=== PATIENT | female | born 1965 | race Caucasian/White ===

== ENCOUNTER 2021-04-03 05:47 | Inpatient (IN) | payer OTHER ==
[~2021-04-03] VITALS: Ht 162.6 cm; Wt 79.8 kg
[2021-04-03] MEDS ORDERED: CHLORHEXIDINE 15 ML UDC ONE (06:37)
[2021-04-03] MEDS ORDERED: LACTATED RINGERS 1,000 ML IV SCH (07:00)
[2021-04-03] MEDS ORDERED: CHLORHEXIDINE 15 ML UDC PO ONE (07:00)
[2021-04-03] MEDS ORDERED: TOPI25TA32 PO (07:21)
[2021-04-03] MEDS ORDERED: LISI1TAB20 PO (07:21)
[2021-04-03] MEDS ORDERED: ALEN70TA77 PO (07:21)
[2021-04-03] MEDS ORDERED: HYDR-2214 PO (07:21)
[2021-04-03] MEDS ORDERED: FLUO10CA13 PO (07:21)
[2021-04-03] MEDS ORDERED: CALC-112 PO (07:21)
[2021-04-03] MEDS ORDERED: GABA300C PO (07:21)
[2021-04-03] MEDS ORDERED: MIDAZOLAM 1 MG/ML, 2ML ONE (07:26)
[2021-04-03] MEDS ORDERED: FENTANYL PF 250 MCG/5ML ONE (07:27)
[2021-04-03 07:36] LABS: ALANINE AMINOTRANSFERASE 23 U/L (12-78); ALBUMIN 3.9 g/dL (3.4-5.0); ANION GAP 9 mmol/L (5-15); CALCIUM 9.3 mg/dL (8.5-10.1); CHLORIDE 106 mmol/L (98-107); CREATININE 0.62 mg/dL (0.55-1.02)
[2021-04-03 07:38] LABS: ALKALINE PHOSPHATASE 108 U/L (45-117); BILIRUBIN,TOTAL 0.4 mg/dL (0.2-1.0)
[2021-04-03] MEDS ORDERED: ONDANSETRON 2MG/ML, 2ML ONE (07:38)
[2021-04-03] MEDS ORDERED: GLYCOPYRROLATE 0.2MG/1ML, 5ML ONE (07:38)
[2021-04-03] MEDS ORDERED: PROPOFOL 10 MG/ML, 20ML ONE (07:38)
[2021-04-03] MEDS ORDERED: ROCURONIUM 10 MG/ML,10ML ONE (07:38)
[2021-04-03] MEDS ORDERED: NEOSTIGMINE 1 MG/ML, 10ML ONE (07:38)
[2021-04-03] MEDS ORDERED: DEXAMETHASONE 4 MG/ML, 1ML ONE (07:38)
[2021-04-03] MEDS ORDERED: CEFAZOLIN 1,000 MG ONE (07:38)
[2021-04-03] MEDS ORDERED: TRANEXAMIC ACID 100 MG/ML, 10ML ONE (07:58)
[2021-04-03] MEDS ORDERED: VANCOMYCIN 1,000 MG ONE ×2 (09:28→10:07)
[2021-04-03] MEDS ORDERED: PROMETHAZINE 25 MG/ML, 1ML IV PRN (09:30)
[2021-04-03] MEDS ORDERED: DIAZEPAM 5 MG/ML, 2ML IVPush PRN (09:30)
[2021-04-03] MEDS ORDERED: ACETAMINOPHEN 325 MG TABLET PO PRN (09:30)
[2021-04-03] MEDS ORDERED: KETOROLAC 30 MG/1 ML IV PRN (09:30)
[2021-04-03] MEDS ORDERED: OXYcodone 5 MG/5 ML ORAL.SOL UDC PO PRN (09:30)
[2021-04-03] MEDS ORDERED: HYDROmorphone 2 MG/ML, 1ML IVPush PRN (09:30)
[2021-04-03] MEDS ORDERED: MEPERIDINE/PF 25MG/0.5ML IVPush PRN (09:30)
[2021-04-03] MEDS ORDERED: hydrALAzine 20 MG/ML, 1ML IV PRN (09:30)
[2021-04-03] MEDS ORDERED: LABETALOL 5MG/ML, 20ML IV PRN (09:30)
[2021-04-03] MEDS ORDERED: ALBUTEROL SULFATE 2.5 MG/3 ML NPPB PRN (09:30)
[2021-04-03] MEDS ORDERED: TOBRAMYCIN SULFATE 1.2 GM IMP ONE (10:07)
[2021-04-03] MEDS ORDERED: METHYLENE BLUE 50 MG/10 ML AMP ONE (10:07)
[2021-04-03] MEDS ORDERED: ACETAMINOPHEN 650 MG/20.3 ML UDC ONE (11:02)
[2021-04-03] MEDS ORDERED: FENTANYL PF 100 MCG/2ML ONE (11:03)
[2021-04-03] MEDS ORDERED: OXYcodone 5 MG/5 ML ORAL.SOL UDC ONE (11:03)
[2021-04-03] MEDS ORDERED: DIAZEPAM 5 MG/ML, 2ML ONE (11:03)
[2021-04-03] MEDS: FENTANYL PF 100 MCG/2ML IV PRN ×2 (11:09→11:48)
[2021-04-03] MEDS ORDERED: BISACODYL 10 MG SUPP PR PRN (11:30)
[2021-04-03] MEDS ORDERED: ALUMINUM/MAG/SIMETHICONE 30 ML UDC PO PRN (11:30)
[2021-04-03] MEDS ORDERED: SENNA/DOCUSATE TABLET PO PRN (11:30)
[2021-04-03] MEDS: SODIUM CHLORIDE 0.9% 1,000 ML IV SCH (11:30)
[2021-04-03] MEDS ORDERED: MAGNESIUM HYDROXIDE 8%, 30ML UDC PO PRN (11:30)
[2021-04-03] MEDS ORDERED: HYDROcodone/APAP 5/325 TABLET PO PRN (11:30)
[2021-04-03] MEDS ORDERED: ONDANSETRON 2MG/ML, 2ML IVPush PRN (11:30)
[2021-04-03] MEDS ORDERED: PROMETHAZINE 25 MG/ML, 1ML IM PRN (11:30)
[2021-04-03 12:30] VITALS: BP 97/63
[2021-04-03] MEDS ORDERED: HYDROmorphone 2 MG/ML, 1ML ONE (13:19)
[2021-04-03] MEDS: HYDROmorphone 1 MG/ML, 1ML INJ IV PRN (13:20)
[2021-04-03] MEDS: OXYcodone/APAP 5/325MG TABLET PO PRN ×2 (14:53→20:23)
[2021-04-03] MEDS: CEFAZOLIN PMX 1GM/50ML 50 ML IVPB SCH (16:22)
[2021-04-03] MEDS: GABAPENTIN 300 MG CAPSULE PO SCH ×2 (16:22→20:23)
[2021-04-03] MEDS: DOCUSATE 100 MG CAPSULE PO SCH (20:22)
[2021-04-03] MEDS: TOPIRAMATE 25 MG TABLET PO SCH ×2 (20:23→20:24)
[2021-04-03 20:31] VITALS: BP 99/64
[2021-04-04] MEDS: CEFAZOLIN PMX 1GM/50ML 50 ML IVPB SCH ×3 (00:47→16:13)
[2021-04-04] MEDS: SODIUM CHLORIDE 0.9% 1,000 ML IV SCH ×2 (00:50→17:27)
[2021-04-04] MEDS: OXYcodone/APAP 5/325MG TABLET PO PRN ×4 (00:59→15:43)
[2021-04-04 01:00] VITALS: BP 104/69
[2021-04-04 04:32] VITALS: BP 92/60
[2021-04-04] MEDS: ENOXAPARIN 40 MG/0.4 ML SQ SCH (06:02)
[2021-04-04] MEDS: GABAPENTIN 300 MG CAPSULE PO SCH ×3 (08:03→21:29)
[2021-04-04] MEDS: DOCUSATE 100 MG CAPSULE PO SCH ×2 (08:03→21:28)
[2021-04-04] MEDS: FLUOXETINE 10 MG CAP PO SCH (08:03)
[2021-04-04] MEDS: LISINOPRIL 20 MG TABLET PO SCH (08:04)
[2021-04-04] MEDS: TOPIRAMATE 25 MG TABLET PO SCH ×2 (08:04→21:00)
[2021-04-04] MEDS: HYDROCHLOROTHIAZIDE 25 MG TABLET PO SCH (08:04)
[2021-04-04 14:35] VITALS: BP 98/62
[2021-04-04] MEDS ORDERED: HYDROmorphone 2 MG/ML, 1ML ONE ×2 (17:52→21:21)
[2021-04-04] MEDS: HYDROmorphone 1 MG/ML, 1ML INJ IV PRN ×2 (17:54→21:31)
[2021-04-04 19:56] VITALS: BP 92/59
[2021-04-05 00:22] VITALS: BP 120/73
[2021-04-05] MEDS: CEFAZOLIN PMX 1GM/50ML 50 ML IVPB SCH ×2 (00:37→08:40)
[2021-04-05] MEDS: OXYcodone/APAP 5/325MG TABLET PO PRN ×3 (00:37→08:52)
[2021-04-05] MEDS: ENOXAPARIN 40 MG/0.4 ML SQ SCH (06:08)
[2021-04-05 07:13] VITALS: BP 121/68
[2021-04-05] MEDS: SODIUM CHLORIDE 0.9% 1,000 ML IV SCH (08:40)
[2021-04-05] MEDS: DOCUSATE 100 MG CAPSULE PO SCH (08:41)
[2021-04-05] MEDS: GABAPENTIN 300 MG CAPSULE PO SCH (08:42)
[2021-04-05] MEDS: FLUOXETINE 10 MG CAP PO SCH (08:42)
[2021-04-05] MEDS: TOPIRAMATE 25 MG TABLET PO SCH (08:43)
[2021-04-05] MEDS: HYDROCHLOROTHIAZIDE 25 MG TABLET PO SCH (08:43)
[2021-04-05] MEDS: LISINOPRIL 20 MG TABLET PO SCH (08:43)
[2021-04-05] MEDS ORDERED: OXYcodone IR 5MG TABLET PO PRN (10:00)
[2021-04-05] MEDS ORDERED: DOCU-131 PO (10:26)
[2021-04-05] MEDS ORDERED: OXYC5TAB98 PO (10:26)
[2021-04-05] MEDS ORDERED: ENOX40SY4 SQ (10:26)
== END 2021-04-05 14:05 | disposition home or self-care (01) | DRG 907 ==
LOC: ORIP 05:47 → 4NE 12:25
PROVIDERS: ADMIT Orthopaedic Surgery; ATTEND Orthopaedic Surgery
PROC: 0QB60ZX Excision of Right Upper Femur, Open Approach, Diagnostic (ICD-10-PCS; 2021-04-03)
PROC: 0YH Anatomical Regions, Lower Extremities, Insertion (ICD-10-PCS; 2021-04-03)
PROC: 0QP804Z Removal of Internal Fixation Device from Right Femoral Shaft, Open Approach (ICD-10-PCS; principal; 2021-04-03 07:30)
DX: T85.698A Other mechanical complication of other specified internal prosthetic devices, implants and grafts, initial encounter (principal); S72.21XA Displaced subtrochanteric fracture of right femur, initial encounter for closed fracture; Y93.89 Activity, other specified; Y92.89 Other specified places as the place of occurrence of the external cause; Y99.8 Other external cause status
CPT/HCPCS: 36415; 73501; 76000; J3260; 80053; 84132; 85014; 85018; 87015; 87070; 87075; 87102; 87116; 87176; 87205; 87206; 87252; C1713; G0378; J0690; J1100; J1170; J1650; J2250; J2405; J2704; J2710; J3010; J3360; J3370; Q9968; J7030; J7120